=== PATIENT | female | born 1945 | race Caucasian/White ===

== ENCOUNTER 2018-11-22 21:36 | Emergency (ER) | payer SELFPAY ==
[2018-11-22] MEDS ORDERED: IPRATRPIUM/ALBUTEROL 0.5/2.5MG 3 ML NEBU. ONE (22:02)
[2018-11-22] MEDS ORDERED: IPRATRPIUM/ALBUTEROL 0.5/2.5MG 3 ML NEBU. NEB ONE (22:15)
[2018-11-22] MEDS ORDERED: IV NORMAL SALINE 1,000ML 1,000 ML IV SCH (22:16)
--- NOTE | 2018-11-22 22:17 | PHYS DOC ---
Past History Additional Past Medical Histor: denies any significant past medical history Smoking: Cigarettes Drug Use: None Adult General Chief Complaint Chief Complaint: SHORTNESS OF BREATH HPI HPI Patient is a 73 year old female who presents with complaint of shortness of breath. The patient states that she started having shortness of breath yesterd ay evening that seemed to improve earlier today. States that it again worsened earlier tonight, thus prompting patient come to the emergency department for further evaluation. Patient states that she has had tightness in her chest and difficulty breathing. Has not taken any medications for her symptoms at home. Denies any known fever. Does have history of smoking but states that she has stopped smoking over the past few weeks. Has not had any associated vomiting or loose stools. Does not currently follow with a primary physician. Review of Systems Review of Systems Constitutional: Denies fever or chills [] Eyes: Denies change in visual acuity, redness, or eye pain [] HENT: Denies nasal congestion or sore throat [] Respiratory: Denies cough or shortness of breath [] Cardiovascular: No additional information not addressed in HPI [] GI: Denies abdominal pain, nausea, vomiting, bloody stools or diarrhea [] : Denies dysuria or hematuria [] Musculoskeletal: Denies back pain or joint pain [] Integument: Denies rash or skin lesions [] Neurologic: Denies headache, focal weakness or sensory changes [] Endocrine: Denies polyuria or polydipsia [] All other systems were reviewed and found to be within normal limits, except as documented in this note. Current Medications Current Medications Current Medications Medications (Trade) Dose Ordered Sig/[facility] Start Time Stop Time Status Last Admin Dose Admin Albuterol/ Ipratropium (Duoneb) 3 ml 1X ONCE 11/22/18 22:15 11/22/18 22:16 DC 11/22/18 22:09 3 ML Allergies Allergies Allergies Coded Allergies Type Severity Reaction Last Updated Verified Penicillins Allergy Unknown 11/22/18 Yes Physical Exam Physical Exam Constitutional: Alert, afebrile, appears in moderate respiratory distress. [] HENT: Normocephalic, atraumatic, bilateral external ears normal, oropharynx moist, no oral exudates, nose normal. [] Eyes: PERRLA, EOMI, conjunctiva normal, no discharge. [] Neck: Normal range of motion, no tenderness, supple, no stridor. [] Cardiovascular: Tachycardiac, regular rhythm, no murmur [] Lungs & Thorax: Prolonged history phase, expiratory wheezes bilaterally, no rales[] Abdomen: Bowel sounds normal, soft, no tenderness, no masses, no pulsatile masses. [] Skin: Warm, dry, no erythema, no rash. [] Back: No tenderness, no CVA tenderness. [] Extremities: No tenderness, no cyanosis, no clubbing, ROM intact, no edema. [] Neurologic: Alert and oriented X 3, normal motor function, normal sensory function, no focal deficits noted. [] Current Patient Data Vital Signs Temperature 97.6�F, blood pressure 179/95, heart rate 117 bpm, respiratory rate 18, oxygen saturation 90% on room air Lab Results Laboratory Tests Test 11/22/18 22:20 White Blood Count 10.9 x10^3/uL Red Blood Count 5.02 x10^6/uL Hemoglobin 15.1 g/dL Hematocrit 44.9 % Mean Corpuscular Volume 89 fL Mean Corpuscular Hemoglobin 30 pg Mean Corpuscular Hemoglobin Concent 34 g/dL Red Cell Distribution Width 15.1 % Platelet Count 269 x10^3/uL Neutrophils (%) (Auto) 79 % Lymphocytes (%) (Auto) 11 % Monocytes (%) (Auto) 8 % Eosinophils (%) (Auto) 1 % Basophils (%) (Auto) 1 % Neutrophils # (Auto) 8.6 x10^3uL Lymphocytes # (Auto) 1.2 x10^3/uL Monocytes # (Auto) 0.8 x10^3/uL Eosinophils # (Auto) 0.1 x10^3/uL Basophils # (Auto) 0.1 x10^3/uL Sodium Level 140 mmol/L Potassium Level 3.3 mmol/L Chloride Level 98 mmol/L Carbon Dioxide Level 29 mmol/L Anion Gap 13 Blood Urea Nitrogen 14 mg/dL Creatinine 1.1 mg/dL Estimated GFR (Cockcroft-Gault) 48.7 BUN/Creatinine Ratio 13 Glucose Level 106 mg/dL Calcium Level 9.3 mg/dL Total Bilirubin 0.8 mg/dL Aspartate Amino Transf (AST/SGOT) 21 U/L Alanine Aminotransferase (ALT/SGPT) 15 U/L Alkaline Phosphatase 138 U/L Troponin I Quantitative < 0.017 ng/mL [id number]-Ltf-A-Type Natriuretic Peptide 281 pg/mL Total Protein 8.1 g/dL Albumin 4.2 g/dL Albumin/Globulin Ratio 1.1 Current Medications Medications (Trade) Dose Ordered Sig/Kisha Route PRN Reason Start Time Stop Time Status Last Admin Dose Admin Albuterol/ Ipratropium (Duoneb) 3 ml STK-MED ONCE .ROUTE 11/22/18 22:02 11/22/18 22:02 DC Albuterol/ Ipratropium (Duoneb) 3 ml 1X ONCE NEB 11/22/18 22:15 11/22/18 22:16 DC 11/22/18 22:09 Sodium Chloride 1,000 ml @ 125 mls/hr Q8H IV 11/22/18 22:16 11/23/18 06:15 11/22/18 22:48 Methylprednisolone Sodium Succinate (SOLU-Medrol 125MG VIAL) 125 mg 1X ONCE IV 11/22/18 22:30 11/22/18 22:31 DC 11/22/18 22:48 EKG EKG Interpreted by me: Heart rate 111, sinus tachycardia, normal axis, normal intervals, no acute ST/T-wave abnormalities present[] Radiology/Procedures Radiology/[place] [address] IMAGING REPORT Signed PATIENT: MASHA GARCIAS LACCOUNT: [id number] : 1945 LOCATION: ER AGE: 73 SEX: F EXAM STATUS: REG ER ORD. PHYSICIAN: JACKLYN GARCIA MD REASON: Short of air, extremity swelling, possible right lung mass PROCEDURE: CT CHEST WO CONTRAST Exam: CT of chest without contrast INDICATION: Shortness of breath TECHNIQUE: Sequential axial images through the chest obtained without IV contrast. Sagittal and coronal reformatted images were reconstructed from the axial data and reviewed. Comparisons: None FINDINGS: Visualized portions of the thyroid are unremarkable. Several enlarged pretracheal lymph nodes are noted and enlarged right hilar lymphadenopathy is seen. Heart size is normal. There is a small pericardial effusion. Moderate trivessel coronary artery calcifications are noted. Thoracic aorta has a normal course and caliber. Pulmonary artery is not enlarged. Airways are patent. No consolidation or pneumothorax. 3.5 x 3.1 cm mass within the right middle lobe. Adjacent satellite nodule measuring 8 mm series 2 image 49. Mild centrilobular emphysematous changes noted in the upper lungs. No pleural effusion or thickening. Visualized upper abdomen is unremarkable. Adrenals are normal. No suspicious osseous lesion or acute fracture. IMPRESSION: 1. Right middle lobe mass measuring 3.5 x 3.1 cm and represent primary lung malignancy. There is an adjacent satellite nodule in the right middle lobe measuring 8 mm. 2. Enlarged right hilar and pretracheal lymphadenopathy, likely metastatic Exposure: One or more of the following in the visualized dose reduction techniques were utilized for this examination: 1. Automated exposure control 2. Adjustment of the MA and/or KV according to patient size 3. Use of iterative of reconstructive technique Electronically signed by: Real Nava MD (11/22/2018 11:21 PM) [facility] DICTATED AND SIGNED BY: REAL NAVA MD DATE: 11/22/182320 CC: JACKLYN GARCIA MD; PCP,NO ~ [place] [address] IMAGING REPORT Signed PATIENT: MASHA GARCIAS LACCOUNT: [id number] : 1945 LOCATION: ER AGE: 73 SEX: F EXAM STATUS: REG ER ORD. PHYSICIAN: JACKLYN GARCIA MD REASON: Shortness of breath PROCEDURE: PORTABLE CHEST 1V EXAM: CHEST ONE VIEW. HISTORY: Shortness of breath. COMPARISON: None. FINDINGS: A frontal view of the chest is obtained. There is a masslike opacity in the right mid lung versus a focal infiltrate. It measures 4.3 x 2.8 cm. There is mild atelectasis in the right base. There is no pneumothorax or pleural effusion. The heart is moderately enlarged. Hyperinflation suggests chronic obstructive pulmonary disease. There are atherosclerotic calcifications of the aorta. IMPRESSION: 1. 4.3 cm mass versus focal infiltrate in the right midlung. CT could further evaluate if the diagnosis remains unclear. 2. Chronic obstructive pulmonary disease. 3. Moderate cardiomegaly. Electronically signed by: Khai Rodrigues MD (11/22/2018 11:21 PM) [facility] DICTATED AND SIGNED BY: SOWMYA RODRIGUES MD DATE: 11/22/18 6978 CC: JACKLYN GARCIA MD; PCP,LINDSEY ~ [] Course & Med Decision Making Course & Med Decision Making Pertinent Labs and Imaging studies reviewed. (See chart for details) Patient was given one unit dose of DuoNeb in addition to IV Solu-Medrol in the emergency department. The patient states that after breathing treatment she feels much better and is not feeling short of breath. Patient's workup was concerning for a right lung mass noted on the chest x-ray. I ordered a CT scan which confirms a right middle lobe lung mass with right hilar and pretracheal lymphadenopathy raising primary concern for metastatic lung cancer. The patient currently does not have a primary care provider and is not following with anybody regarding routine care. I sat and spoke with the patient in detail regarding her diagnosis and need for additional workup. Given that the patient continues to display tachycardia with presence of abnormal findings, I offered transfer of the patient to a facility with pulmonology and oncology capabilities. The patient has declined admission and does not want to pursue transfer at this time. She is aware of the seriousness of her diagnosis and the need for further workup and states that she would like to do this as an outpatient. I will respect the patient's wishes. We'll prescribe prednisone, azithromycin, and albuterol for acute treatment of symptoms. Recommended follow-up with Dr. Nolasco of pulmonology for follow-up in the next 7 days for ER follow-up. Advised return to the emergency department for any worsening symptoms. Patient was understanding and in agreement with treatment plan. Dragon Disclaimer Dragon Disclaimer This electronic medical record was generated, in whole or in part, using a voice recognition dictation system. Departure Departure: Impression: Primary Impression: Mass of lung Additional Impression: Reactive airway disease Disposition: HOME, SELF-CARE Condition: STABLE Referrals: PCP,LINDSEY (PCP) JONO NOLASCO MD Patient Instructions: Asthma, Adult, Lung Cancer Additional Instructions: Your examination today reveals a lung mass that is very concerning for lung cancer. It is highly recommended that she follow-up within the next 7 days with a general pediatrician for reevaluation as this will need further testing to confirm diagnosis. Return to the emergency department for any worsening symptoms. Scripts Albuterol Sulfate (PROAIR HFA INHALER) 8.5 Gm Hfa.aer.ad 1 PUFF INH Q4-6HRS PRN for SHORTNESS OF BREATH, #1 INHALER 0 Refills Prov: JACKLYN GARCIA MD 11/22/18 Azithromycin (AZITHROMYCIN TABLET) 250 Mg Tablet 1 PKG PO UD, #6 TAB Prov: JACKLYN GARCIA MD 11/22/18 Prednisone (PREDNISONE) 10 Mg Tablet 10 MG PO UD for PREDNISONE TAPER, #39 TAB 0 Refills Take 3 tablets by mouth twice a day for 3 days, then take 2 tablets by mouth twice a day for 3 days, then take 1 tablet by mouth twice a day for 3 days, then take 1 tablet by mouth daily x 3 days, then stop. Prov: JACKLYN GARCIA MD 11/22/18 Problem Qualifiers Additional Impression: Reactive airway disease Asthma severity: unspecified severity Asthma persistence: unspecified Asthma complication type: with acute exacerbation Qualified Codes: J45.901 - Unspecified asthma with (acute) exacerbation JACKLYN GARCIA MD Nov 22, 2018 22:17
[2018-11-22] MEDS ORDERED: methylPREDNISolone SOD SUCC PF 125 MG/2 ML VIAL. IV ONE (22:30)
[2018-11-22 22:35] LABS: BASO # 0.1 x10^3/uL (0.0-0.2); BASO % 1 % (0-3); EOS # 0.1 x10^3/uL (0.0-0.7); EOS % 1 % (0-3); HEMATOCRIT 44.9 % (36.0-47.0); HEMOGLOBIN 15.1 g/dL (12.0-15.5); LYMPH # 1.2 x10^3/uL (1.0-4.8); LYMPH % 11 % (24-48); MEAN CORPUSCULAR HEMOGLOBIN 30 pg (25-35); MEAN CORPUSCULAR HGB CONC 34 g/dL (31-37); MEAN CORPUSCULAR VOLUME 89 fL (79-100); MONO # 0.8 x10^3/uL (0.0-1.1); MONO % 8 % (0-9); NEUT # 8.6 x10^3uL (1.8-7.7); NEUT % 79 % (31-73); PLATELET COUNT 269 x10^3/uL (140-400); RED BLOOD COUNT 5.02 x10^6/uL (3.50-5.40); RED CELL DISTRIBUTION WIDTH 15.1 % (11.5-14.5); WHITE BLOOD COUNT 10.9 x10^3/uL (4.0-11.0)
[2018-11-22 22:53] LABS: ALBUMIN 4.2 g/dL (3.4-5.0); ALBUMIN/GLOBULIN RATIO 1.1 (1.0-1.7); CALCIUM 9.3 mg/dL (8.5-10.1); CREATININE 1.1 mg/dL (0.6-1.0); GFR 48.7; POTASSIUM 3.3 mmol/L (3.5-5.1); TOTAL BILIRUBIN 0.8 mg/dL (0.2-1.0); TOTAL PROTEIN 8.1 g/dL (6.4-8.2)
--- NOTE | 2018-11-22 23:24 | RAD ---
EXAM: CHEST ONE VIEW. HISTORY: Shortness of breath. COMPARISON: None. FINDINGS: A frontal view of the chest is obtained. There is a masslike opacity in the right mid lung versus a focal infiltrate. It measures 4.3 x 2.8 cm. There is mild atelectasis in the right base. There is no pneumothorax or pleural effusion. The heart is moderately enlarged. Hyperinflation suggests chronic obstructive pulmonary disease. There are atherosclerotic calcifications of the aorta. IMPRESSION: 1. 4.3 cm mass versus focal infiltrate in the right midlung. CT could further evaluate if the diagnosis remains unclear. 2. Chronic obstructive pulmonary disease. 3. Moderate cardiomegaly. Electronically signed by: Khai Rodrigues MD (11/22/2018 11:21 PM) [facility]
--- NOTE | 2018-11-22 23:24 | RAD ---
Exam: CT of chest without contrast INDICATION: Shortness of breath TECHNIQUE: Sequential axial images through the chest obtained without IV contrast. Sagittal and coronal reformatted images were reconstructed from the axial data and reviewed. Comparisons: None FINDINGS: Visualized portions of the thyroid are unremarkable. Several enlarged pretracheal lymph nodes are noted and enlarged right hilar lymphadenopathy is seen. Heart size is normal. There is a small pericardial effusion. Moderate trivessel coronary artery calcifications are noted. Thoracic aorta has a normal course and caliber. Pulmonary artery is not enlarged. Airways are patent. No consolidation or pneumothorax. 3.5 x 3.1 cm mass within the right middle lobe. Adjacent satellite nodule measuring 8 mm series 2 image 49. Mild centrilobular emphysematous changes noted in the upper lungs. No pleural effusion or thickening. Visualized upper abdomen is unremarkable. Adrenals are normal. No suspicious osseous lesion or acute fracture. IMPRESSION: 1. Right middle lobe mass measuring 3.5 x 3.1 cm and represent primary lung malignancy. There is an adjacent satellite nodule in the right middle lobe measuring 8 mm. 2. Enlarged right hilar and pretracheal lymphadenopathy, likely metastatic Exposure: One or more of the following in the visualized dose reduction techniques were utilized for this examination: 1. Automated exposure control 2. Adjustment of the MA and/or KV according to patient size 3. Use of iterative of reconstructive technique Electronically signed by: Real Hill MD (11/22/2018 11:21 PM) [facility]
[2018-11-22] MEDS ORDERED: ALBU2.5V8 INH (23:58)
[2018-11-22] MEDS ORDERED: AZIT250T6 PO (23:58)
[2018-11-22] MEDS ORDERED: PRED-220 PO (23:58)
[2018-11-23 00:03] VITALS: BP 174/83
--- NOTE | 2018-11-24 15:52 | EKG ---
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
== END 2018-11-23 00:05 | disposition home or self-care (01) ==
LOC: ER 21:36
DX: J45.901 Unspecified asthma with (acute) exacerbation (principal); R91.8 Other nonspecific abnormal finding of lung field; F17.210 Nicotine dependence, cigarettes, uncomplicated; Z88.0 Allergy status to penicillin
CPT/HCPCS: 36415; 71045; 71250; 80053; 83880; 84484; 85025; 93005; 94640; 96374; 99285; J2930; J7620; J7030

== ENCOUNTER 2020-02-02 17:56 | Emergency (ER) | payer MEDICARE, OTHER ==
[~2020-02-02] VITALS: Ht 157.5 cm; Wt 86.1 kg
[~2020-02-02 17:56] MED LIST: ALBU2.5V8 INH; AZIT250T6 PO; PRED-220 PO
--- NOTE | 2020-02-02 18:19 | PHYS DOC ---
Past History Past Medical History: Anxiety, Arthritis, Cancer, Hypertension Additional Past Medical Histor: LUNG CA, HEART MURMUR Past Surgical History: Cholecystectomy, , Hysterectomy, Oophorectomy, Tonsillectomy Additional Past Surgical Histo: ADNOIDECTOMY; LEFT CARPAL TUNNEL RELEASE; HEMORRHOIDS Smoking: Cigarettes Alcohol Use: None Drug Use: None General Adult EDM: Chief Complaint: SHORTNESS OF BREATH HPI: HPI: ".. I ve been really short of breath the last two days... You see I got lung cancer... small cell.. they found it back in Nov. .. I ve been on Chemo... every three weeks at [facility]... and they are doing MRI of my head and CT of my chest... I see a oncology down there at [facility].... Right now I cannot think of his name... Now I am so short of breath I cannot make it down the hallway... I have not needed oxygen to this point... But I really short of breath...".. " I know I am just buying time... ".."I know what going... 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 Patient is a 74 year old female who presents with above hx and complaints of dyspnea and fatigue. Patient has history of small cell lung cancer and has been on chemotherapy every 3 weeks. Is followed with oncology at [facility]. Has getting IV chemotherapy every 3 weeks. Pt . is due for another round of chemo this week. Patient has been seen by cardiology Dr. Barkley back in November.. Patient denies any specific ill contacts. Is immunosuppressed because of her chemotherapy. Patient denies any fever chills. No recent travel outside the [place] area. 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 Patien has past medical history small cell lung cancer, hypertension, gait disorder, bronchitis, COPD, heart murmur, deconditioning. Pt. primary is Dr. Sadie Arce. Review of Systems: Review of Systems: Constitutional: Denies fever or chills Eyes: Denies change in visual acuity HENT: Denies nasal congestion or sore throat Respiratory: Complaints of increase dyspnea with activity. Cardiovascular: Denies chest pain or edema GI: Denies abdominal pain, nausea, vomiting, bloody stools or diarrhea : Denies dysuria Musculoskeletal: Denies back pain or joint pain Integument: Denies rash Neurologic: Denies headache, focal weakness or sensory changes Endocrine: Denies polyuria or polydipsia Lymphatic: Denies swollen glands Psychiatric: Denies depression or anxiety Family History: Family History: Noncontributory to presentation Current Medications: Current Meds: See nursing for home meds Allergies: Allergies: Allergies Coded Allergies Type Severity Reaction Last Updated Verified Penicillins Allergy Unknown 11/22/18 Yes Physical Exam: PE: Constitutional: Moderate acute distress, non-toxic appearance. [] HENT: Normocephalic, atraumatic, bilateral external ears normal, oropharynx mo ist, no oral exudates, nose normal. [] Eyes: PERRLA, EOMI, conjunctiva normal, no discharge. [] Neck: Normal range of motion, no tenderness, supple, no stridor. [] Cardiovascular: Tachycardia heart rate regular rhythm, systolic murmur [] Lungs & Thorax: Bilateral breath sounds equal apex with scattered wheezes auscultation [Pt. ] has intravascular port on left chest wall. Some basilar crackles Abdomen: Bowel sounds normal, soft, no tenderness, no masses, no pulsatile masses. Old surgery scars Skin: Warm, dry, no erythema, no rash. Poor turgor Back: No tenderness, no CVA tenderness. [] Extremities: No tenderness, no cyanosis, no clubbing, ROM intact, no edema. Old surgery scars. Arthritis. No cording appreciated Neurologic: Alert and oriented X 3, moves all extremities on request, has distal sensory,, no focal deficits noted. Uses a walker to ambulate. Psychologic: Affect anxious, judgement normal, mood normal. [] Current Patient Data: Vital Signs: Vital Signs Date Time Temp Pulse Resp B/P (MAP) Pulse Ox O2 Delivery O2 Flow Rate FiO2 02/02/20 18:07 98.7 103 24 216/82 (126) 99 Nasal Cannula 2.0 EKG: EKG: My interpretation of EKG shows a sinus rhythm at 97 bpm. No findings of acute STEMI of contralateral changes. [] Radiology/Procedures: Radiology/Procedures: [][address] [address] IMAGING REPORT Signed PATIENT: MASHA GARCIAS LACCOUNT: [id number] : 1945 LOCATION: ER AGE: 74 SEX: F EXAM STATUS: REG ER ORD. PHYSICIAN: HEATH HOPKINS MD REASON: dyspnea, SS lung CA, on chemo, OMNI 350, 100ml PROCEDURE: CT ANGIOGRAPHY CHEST CT angiography chest with contrast PQRS statement: CT scans at this facility use dose reduction including either automated exposure control, iterative reconstructions, and /or weight based radiation dosing via mA and kV modification when appropriate to reduce radiation dose to as low as reasonably achievable. Contrast: 100 mL Omnipaque 350 intravenous contrast. 3-D MIP reconstructions of the pulmonary arteries were acquired. HISTORY: Dyspnea, history of lung cancer, cough. COMPARISON: CT chest November 22, 2018. FINDINGS: Extensive calcified plaque thoracic aorta and coronary arteries. Left jugular portacatheter tip right atrium. There is a mild pericardial effusion with a maximum thickness of 2 cm posterior the left ventricle which has increased in size previously was subcentimeter in thickness. Heart size stable. No pulmonary artery emboli. Esophagus is unremarkable. Mediastinal and hilar lymph nodes have markedly decreased in size, currently the largest lymph nodes measuring up to 1.5 cm previously measured up to 3 cm. There are diffuse small 1 to 2 mm in size centrilobular nodules bilaterally suggesting an infectious/inflammatory process. There are some slightly larger solid nodules which are new measuring up to 6 mm at the lingula at the lingula image 69.. The right middle lobe mass on the prior exam has significantly decreased there is a mild irregular residual 1.8 cm nodule remaining previously measured 3.5 cm. Mild discoid atelectasis at the lung bases. No pleural effusions. Bones unremarkable. IMPRESSION: 1. No pulmonary artery emboli. 2. Development of diffuse centrilobular type nodules measuring 1 to 2 mm in size suggesting endobronchial infectious or inflammatory process. There are a few scattered new solid nodules measuring up to 6 mm which are indeterminate. Consider follow-up CT imaging in 6 months. 3. Positive treatment response with reduction in size of the right middle lobe mass and reduction in size of the thoracic adenopathy as described above. 4. Moderate pericardial effusion has increased in size as described above. This could be reactive fluid or sequela of pericarditis. There is no discrete pericardial mass lesion evident although pericardial fluid from metastatic disease is also a possibility. Electronically signed by: Columba Neumann MD (02/02/2020 10:18 PM) [facility] DICTATED AND SIGNED BY: COLUMBA NEUMANN MD DATE: 02/02/202217 CC: HEATH HOPKINS MD; LUIS ARCE MD ~ [place] [address] IMAGING REPORT Signed PATIENT: MASHA GARCIAS LACCOUNT: [id number] : 1945 LOCATION: ER AGE: 74 SEX: F EXAM STATUS: REG ER ORD. PHYSICIAN: HEATH HOPKINS MD REASON: ?? PROCEDURE: PORTABLE CHEST 1V AP chest x-ray HISTORY: Dyspnea, lung cancer. COMPARISON: Chest x-ray November 22, 2018. FINDINGS: Mild cardiomegaly stable. Left jugular portacatheter tip right atrium. Aortic arch calcified plaque. The mass lesion at the right lung base on the prior x-rays is no longer apparent. Pulmonary vascular prominence likely congestion. Probable pulmonary interstitial edema at the lung bases. No pleural effusions. IMPRESSION: Mild probable changes of congestive heart failure with cardiomegaly, pulmonary vascular congestion and mild basilar pulmonary interstitial edema. No pleural effusions. See above. Electronically signed by: Columba Neumann MD (02/02/2020 8:22 PM) [facility] DICTATED AND SIGNED BY: COLUMBA NEUMANN MD DATE: 02/02/202021 CC: HEATH HOPKINS MD; LUIS ARCE MD ~ Heart Score: HEART Score for Chest Pain: HEART Score for Chest Pain Response (Comments) Value History Slighlty/Non-Suspicious 0 ECG Normal 0 Age > 65 2 Risk Factors 1 or 2 Risk Factors 1 Troponin < Normal Limit 0 Total 3 Risk Factors: Risk Factors: DM, Current or recent (<one month) smoker, HTN, HLP, family history of CAD, obesity. Risk Scores: Score 0 - 3: 2.5% MACE over next 6 weeks - Discharge Home Score 4 - 6: 20.3% MACE over next 6 weeks - Admit for Clinical Observation Score 7 - 10: 72.7% MACE over next 6 weeks - Early Invasive Strategies Course & Med Decision Making: Course & Med Decision Making Pertinent Labs and Imaging studies reviewed. (See chart for details) Discussed at length patient's findings, labs, x-rays, and risk factors. Patient reporting resolution of her symptoms at time of discharge. Exhibits UC[facility] capacity and elects to be discharged home. We will continue with Zithromax 250 mg a day. Patient use MDI 2 puffs 4 times a day. Recommend patient take Eliquis 2.5 mg twice a day. Reviewed this with her primary care and oncology. Call in a.m. her primary care and her oncologist. Return if any concerns. "I feel so much better.. I would like to discharged home. .. I know there are risks.. but I want to go home.. " Impression: 1. Dyspnea 2. Small cell lung cancer right-on chemotherapy every 3 weeks 3. Elevated CRP 11.3 4. Mild elevation of D-dimer 0.97 [] Pattie Disclaimer: Pattie Disclaimer: This electronic medical record was generated, in whole or in part, using a voice recognition dictation system. Departure Departure: Disposition: 01 DC HOME SELF CARE/HOMELESS Condition: STABLE Referrals: PCP,NO (PCP) Scripts Azithromycin (ZITHROMAX) 250 Mg Tablet 250 MG PO DAILY for ANTI-BIOTIC, #5 TAB 0 Refills Prov: HEATH HOPKINS MD 02/03/20 Albuterol Sulfate (VENTOLIN HFA INHALER) 18 Gm Hfa.aer.ad 2 PUFF IH QID PRN for FOR ASTHMA, #1 INHALER 0 Refills Prov: HEATH HOPKINS MD 02/03/20 Pattie Disclaimer This chart was dictated in whole or in part using Voice Recognition software in a busy, high-work load, and often noisy Emergency Department environment. It may contain unintended and wholly unrecognized errors or omissions. Dragon Disclaimer This chart was dictated in whole or in part using Voice Recognition software in a busy, high-work load, and often noisy Emergency Department environment. It may contain unintended and wholly unrecognized errors or omissions. HEATH HOPKINS MD Feb 02, 2020 18:19
[2020-02-02] MEDS ORDERED: CONTRAST GIVEN. MC PRN (18:45)
[2020-02-02 18:55] LABS: BASO % 1 % (0-3); EOS # 0.6 x10^3/uL (0.0-0.7); EOS % 7 % (0-3); HEMATOCRIT 38.7 % (36.0-47.0); HEMOGLOBIN 12.6 g/dL (12.0-15.5); LYMPH # 1.4 x10^3/uL (1.0-4.8); LYMPH % 17 % (24-48); MEAN CORPUSCULAR HEMOGLOBIN 30 pg (25-35); MEAN CORPUSCULAR HGB CONC 33 g/dL (31-37); MEAN CORPUSCULAR VOLUME 91 fL (79-100); MONO # 0.8 x10^3/uL (0.0-1.1); MONO % 10 % (0-9); NEUT # 5.1 x10^3uL (1.8-7.7); NEUT % 65 % (31-73); PLATELET COUNT 197 x10^3/uL (140-400); RED BLOOD COUNT 4.24 x10^6/uL (3.50-5.40); RED CELL DISTRIBUTION WIDTH 14.5 % (11.5-14.5); WHITE BLOOD COUNT 7.9 x10^3/uL (4.0-11.0)
[2020-02-02] MEDS ORDERED: AZITHROMYCIN 250 MG TABLET. PO ONE (19:00)
[2020-02-02] MEDS ORDERED: IV RINGERS SOLUTION,LACTATED 1,000 ML IV SCH (19:00)
[2020-02-02] MEDS ORDERED: ASPIRIN CHEWABLE 81 MG TABLET. PO ONE (19:00)
[2020-02-02] MEDS ORDERED: methylPREDNISolone SOD SUCC PF 125 MG/2 ML VIAL. IV ONE (19:00)
[2020-02-02] MEDS ORDERED: IOHEXOL 350 MG/ML 100 ML VIAL. IV ONE (19:00)
[2020-02-02] MEDS ORDERED: ALBUTEROL SULFATE 8GM INHALER. IH ONE (19:00)
[2020-02-02 19:06] LABS: CREATININE 0.8 mg/dL (0.6-1.0); GFR 70.1; POTASSIUM 3.5 mmol/L (3.5-5.1)
[2020-02-02 19:09] LABS: BACTERIA,URINE 0 /HPF (0-FEW); BILIRUBIN,URINE NEG (NEG); CLARITY,URINE CLEAR; COLOR,URINE COLORLESS; GLUCOSE,URINE NEG (NEG); NITRITE,URINE NEG (NEG); RBC,URINE RARE /HPF (0-2); UROBILINOGEN,URINE 0.2 mg/dL (0.2 mg/dL); WBC,URINE 0 /HPF (0-4)
[2020-02-02 19:19] LABS: ALBUMIN 3.8 g/dL (3.4-5.0); C REACTIVE PROTEIN 11.3 mg/L (0-3.3); DIRECT BILIRUBIN 0.1 mg/dL (0.0-0.2); MAGNESIUM 1.9 mg/dL (1.8-2.4); TOTAL BILIRUBIN 0.3 mg/dL (0.2-1.0)
[2020-02-02] MEDS ORDERED: diphenhydrAMINE 50 MG/ML VIAL IVP ONE (20:00)
[2020-02-02] MEDS ORDERED: FAMOTIDINE 20 MG/2 ML VIAL IVP ONE (20:00)
--- NOTE | 2020-02-02 20:25 | RAD ---
AP chest x-ray HISTORY: Dyspnea, lung cancer. COMPARISON: Chest x-ray November 22, 2018. FINDINGS: Mild cardiomegaly stable. Left jugular portacatheter tip right atrium. Aortic arch calcified plaque. The mass lesion at the right lung base on the prior x-rays is no longer apparent. Pulmonary vascular prominence likely congestion. Probable pulmonary interstitial edema at the lung bases. No pleural effusions. IMPRESSION: Mild probable changes of congestive heart failure with cardiomegaly, pulmonary vascular congestion and mild basilar pulmonary interstitial edema. No pleural effusions. See above. Electronically signed by: Jeevan Neumann MD (02/02/2020 8:22 PM) [facility]
[2020-02-02 21:05] VITALS: BP 207/102
--- NOTE | 2020-02-02 22:21 | RAD ---
CT angiography chest with contrast PQRS statement: CT scans at this facility use dose reduction including either automated exposure control, iterative reconstructions, and /or weight based radiation dosing via mA and kV modification when appropriate to reduce radiation dose to as low as reasonably achievable. Contrast: 100 mL Omnipaque 350 intravenous contrast. 3-D MIP reconstructions of the pulmonary arteries were acquired. HISTORY: Dyspnea, history of lung cancer, cough. COMPARISON: CT chest November 22, 2018. FINDINGS: Extensive calcified plaque thoracic aorta and coronary arteries. Left jugular portacatheter tip right atrium. There is a mild pericardial effusion with a maximum thickness of 2 cm posterior the left ventricle which has increased in size previously was subcentimeter in thickness. Heart size stable. No pulmonary artery emboli. Esophagus is unremarkable. Mediastinal and hilar lymph nodes have markedly decreased in size, currently the largest lymph nodes measuring up to 1.5 cm previously measured up to 3 cm. There are diffuse small 1 to 2 mm in size centrilobular nodules bilaterally suggesting an infectious/inflammatory process. There are some slightly larger solid nodules which are new measuring up to 6 mm at the lingula at the lingula image 69.. The right middle lobe mass on the prior exam has significantly decreased there is a mild irregular residual 1.8 cm nodule remaining previously measured 3.5 cm. Mild discoid atelectasis at the lung bases. No pleural effusions. Bones unremarkable. IMPRESSION: 1. No pulmonary artery emboli. 2. Development of diffuse centrilobular type nodules measuring 1 to 2 mm in size suggesting endobronchial infectious or inflammatory process. There are a few scattered new solid nodules measuring up to 6 mm which are indeterminate. Consider follow-up CT imaging in 6 months. 3. Positive treatment response with reduction in size of the right middle lobe mass and reduction in size of the thoracic adenopathy as described above. 4. Moderate pericardial effusion has increased in size as described above. This could be reactive fluid or sequela of pericarditis. There is no discrete pericardial mass lesion evident although pericardial fluid from metastatic disease is also a possibility. Electronically signed by: Jeevan Neumann MD (02/02/2020 10:18 PM) [facility]
[2020-02-03] MEDS ORDERED: AZIT250T PO (01:23)
[2020-02-03] MEDS ORDERED: ALBU2.5V8 IH (01:23)
--- NOTE | 2020-02-03 02:00 | EKG ---
[address] [address] Test Date: 2020-02-02 Test Time: 19:21:35 Pat Name: MASHA GARCIAS Department: Room: Gender: F Service Manager: JAYY : 1945 Requested By: HEATH HOPKINS Order Number: [id number] Reading MD: Ezra Bynum Measurements Intervals [place] Rate: 97 P: 46 SD: 134 QRS: 46 QRSD: 74 T: 68 QT: 354 QTc: 454 Interpretive Statements SINUS RHYTHM Electronically Signed On 02-05-2020 10:57:51 TUTOR COORDINATOR by Ezra Bynum
[2020-02-03] MEDS ORDERED: APIXABAN 2.5 MG TABLET PO SCH (09:00)
== END 2020-02-03 01:50 | disposition home or self-care (01) ==
LOC: ER 17:56
DX: R06.00 Dyspnea, unspecified (principal); R79.82 Elevated C-reactive protein (CRP); R79.89 Other specified abnormal findings of blood chemistry; R53.83 Other fatigue; F41.9 Anxiety disorder, unspecified; M19.90 Unspecified osteoarthritis, unspecified site; I10 Essential (primary) hypertension; F17.210 Nicotine dependence, cigarettes, uncomplicated; Z90.710 Acquired absence of both cervix and uterus; Z90.49 Acquired absence of other specified parts of digestive tract; Z90.89 Acquired absence of other organs; Z98.890 Other specified postprocedural states; Z88.0 Allergy status to penicillin
CPT/HCPCS: 36415; 71045; 71275; 80048; 80076; 81001; 82550; 83605; 83690; 83735; 83880; 84443; 84484; 85025; 85379; 85610; 85730; 86140; 87040; 87205; 93005; 96361; 96374; 96375; 99285; J0456; J1200; J2930; J3490; J7120; J7613; Q9967

== ENCOUNTER → 2020-09-08 | Outpatient (CLI) | payer MEDICARE, OTHER ==
[~2020-09-08] MED LIST changes: +ALBU2.5V8 IH; +AZIT250T PO
[2020-09-08 08:49] LABS: BASO % 1 % (0-3); EOS # 0.5 x10^3/uL (0.0-0.7); EOS % 7 % (0-3); HEMATOCRIT 33.3 % (36.0-47.0); HEMOGLOBIN 11.1 g/dL (12.0-15.5); LYMPH # 1.5 x10^3/uL (1.0-4.8); LYMPH % 22 % (24-48); MEAN CORPUSCULAR HEMOGLOBIN 30 pg (25-35); MEAN CORPUSCULAR HGB CONC 34 g/dL (31-37); MEAN CORPUSCULAR VOLUME 90 fL (79-100); MONO # 0.8 x10^3/uL (0.0-1.1); MONO % 12 % (0-9); NEUT % 58 % (31-73); PLATELET COUNT 205 x10^3/uL (140-400); RED CELL DISTRIBUTION WIDTH 14.8 % (11.5-14.5); WHITE BLOOD COUNT 6.8 x10^3/uL (4.0-11.0)
[2020-09-08 09:21] LABS: ALBUMIN 3.7 g/dL (3.4-5.0); ALBUMIN/GLOBULIN RATIO 0.8 (1.0-1.7); CALCIUM 8.7 mg/dL (8.5-10.1); CREATININE 1.1 mg/dL (0.6-1.0); GFR 48.4; TOTAL BILIRUBIN 0.3 mg/dL (0.2-1.0); TOTAL PROTEIN 8.1 g/dL (6.4-8.2)
== END ==
LOC: LAB 07:51
PROVIDERS: ATTEND Internal Medicine Hematology & Oncology
DX: E05.80 Other thyrotoxicosis without thyrotoxic crisis or storm (principal)
CPT/HCPCS: 36415; 80053; 83615; 85025

== ENCOUNTER → 2020-09-29 | Outpatient (CLI) | payer MEDICARE, OTHER ==
[2020-09-29 08:47] LABS: BASO % 1 % (0-3); EOS # 0.6 x10^3/uL (0.0-0.7); EOS % 7 % (0-3); HEMATOCRIT 33.5 % (36.0-47.0); HEMOGLOBIN 11.3 g/dL (12.0-15.5); LYMPH # 1.6 x10^3/uL (1.0-4.8); LYMPH % 18 % (24-48); MEAN CORPUSCULAR HEMOGLOBIN 30 pg (25-35); MEAN CORPUSCULAR HGB CONC 34 g/dL (31-37); MEAN CORPUSCULAR VOLUME 90 fL (79-100); MONO % 12 % (0-9); NEUT # 5.4 x10^3uL (1.8-7.7); NEUT % 63 % (31-73); PLATELET COUNT 196 x10^3/uL (140-400); RED BLOOD COUNT 3.73 x10^6/uL (3.50-5.40); RED CELL DISTRIBUTION WIDTH 14.5 % (11.5-14.5); WHITE BLOOD COUNT 8.6 x10^3/uL (4.0-11.0)
[2020-09-29 08:55] LABS: ALBUMIN 3.9 g/dL (3.4-5.0); ALBUMIN/GLOBULIN RATIO 0.9 (1.0-1.7); CALCIUM 8.8 mg/dL (8.5-10.1); CREATININE 1.1 mg/dL (0.6-1.0); GFR 48.4; POTASSIUM 4.2 mmol/L (3.5-5.1); TOTAL BILIRUBIN 0.3 mg/dL (0.2-1.0); TOTAL PROTEIN 8.2 g/dL (6.4-8.2)
== END ==
LOC: LAB 08:05
PROVIDERS: ATTEND Internal Medicine Hematology & Oncology
DX: C34.2 Malignant neoplasm of middle lobe, bronchus or lung (principal); D69.6 Thrombocytopenia, unspecified; E05.80 Other thyrotoxicosis without thyrotoxic crisis or storm
CPT/HCPCS: 36415; 80053; 83615; 85025

== ENCOUNTER → 2020-10-20 | Outpatient (CLI) | payer MEDICARE, OTHER ==
[2020-10-20 08:23] LABS: BASO % 1 % (0-3); EOS # 0.5 x10^3/uL (0.0-0.7); EOS % 6 % (0-3); HEMOGLOBIN 11.2 g/dL (12.0-15.5); LYMPH % 23 % (24-48); MEAN CORPUSCULAR HEMOGLOBIN 30 pg (25-35); MEAN CORPUSCULAR HGB CONC 33 g/dL (31-37); MEAN CORPUSCULAR VOLUME 91 fL (79-100); MONO # 1.3 x10^3/uL (0.0-1.1); MONO % 15 % (0-9); NEUT % 57 % (31-73); PLATELET COUNT 193 x10^3/uL (140-400); RED BLOOD COUNT 3.76 x10^6/uL (3.50-5.40); RED CELL DISTRIBUTION WIDTH 14.8 % (11.5-14.5); WHITE BLOOD COUNT 8.8 x10^3/uL (4.0-11.0)
[2020-10-20 08:39] LABS: ALBUMIN 3.6 g/dL (3.4-5.0); ALBUMIN/GLOBULIN RATIO 0.8 (1.0-1.7); GFR 54.1; MAGNESIUM 1.8 mg/dL (1.8-2.4); POTASSIUM 3.7 mmol/L (3.5-5.1); TOTAL BILIRUBIN 0.3 mg/dL (0.2-1.0)
== END ==
LOC: LAB 07:47
PROVIDERS: ATTEND Physician Assistant
DX: C34.2 Malignant neoplasm of middle lobe, bronchus or lung (principal)
CPT/HCPCS: 36415; 80053; 83615; 83735; 85025

== ENCOUNTER → 2020-12-01 | Emergency (ER) | payer MEDICARE, OTHER ==
[~2020-12-01] MED LIST changes: +EPINEPHrine SYRINGE 1 MG/10 ML SYRINGE ONE; +FUROSEMIDE 100 MG/10 ML VIAL ONE; +NITROGLYCERIN OINT 1 GM PACKET. TP ONE; +PANTOPRAZOLE IV 40 MG VIAL. IVP ONE; +PROPOFOL 100 ML IV ONE; +PROPOFOL 100 ML IV PRN; +SODIUM BICARB ADULT 8.4% 50 MEQ/50 ML DISP.SYRIN. IV ONE; +SODIUM BICARB ADULT 8.4% 50 MEQ/50 ML DISP.SYRIN. ONE; +methylPREDNISolone SOD SUCC PF 125 MG/2 ML VIAL. IV ONE; +methylPREDNISolone SOD SUCC PF 125 MG/2 ML VIAL. ONE
--- NOTE | 2020-12-01 07:30 | PHYS DOC ---
Past History Past Medical History: Anxiety, Arthritis, Cancer, Hypertension Additional Past Medical Histor: LUNG CA, HEART MURMUR Past Surgical History: Cholecystectomy, , Hysterectomy, Oophorectomy, Tonsillectomy Additional Past Surgical Histo: ADNOIDECTOMY; LEFT CARPAL TUNNEL RELEASE; HEMORRHOIDS Smoking: Cigarettes Alcohol Use: None Drug Use: None Adult General HPI HPI Patient is a 75-year-old female presenting for respiratory failure. Patient presented POV and had trouble getting out of vehicle. Presented with agonal breathing. She was blue/cyanotic and nonresponsive. Staff immediately responded to patient on arrival given appearance upon entry to our waiting room, pulse was lost in waiting room and patient was quickly placed on ER gurney and brought back for CODE BLUE. Presenting symptoms are unknown. Per chart review, it appears patient was diagnosed with small cell lung cancer November 2019. She has been going down to [facility] where she received chemo. At her last visit approximately 1 year ago she was not on oxygen. She has history of small cell lung cancer as mention, hypertension, gait disorder, bronchitis, COPD, heart murmur and deconditioning. Patient's primary is Dr. Arce Review of Systems Review of Systems Unable to assess due to CODE BLUE situation Current Medications Current Medications Current Medications Medications (Trade) Dose Ordered Sig/Kisha Start Time Stop Time Status Last Admin Dose Admin Furosemide (Lasix) 100 mg STK-MED ONCE 12/01/20 07:17 12/01/20 07:18 DC Methylprednisolone Sodium Succinate (SOLU-Medrol 125MG VIAL) 125 mg STK-MED ONCE 12/01/20 07:26 12/01/20 07:26 DC Allergies Allergies Allergies Coded Allergies Type Severity Reaction Last Updated Verified Penicillins Allergy Intermediate 02/02/20 Yes iodine Allergy Intermediate Itching 02/02/20 Yes Physical Exam Physical Exam Constitutional: Toxic appearing and cyanotic around the lips and face on arrival, agonal breathing HEENT: Head: Normocephalic and atraumatic. External ears unremarkable, no davis sign Conjunctivae and sclera normal. Pupils are equal, round, and minimally reactive to light Oropharynx is clear and moist. No teeth No hematomas or lacerations or abrasions to face or scalp OP clear, no blood, no malocclusion, dentition intact Nares clear, no nasal septal hematoma Midface stable Neck: C-spine midline nontender, no step-offs Cardiovascular: Tachycardic rate, regular rhythm and normal heart sounds. Pulmonary/Chest: Acute respiratory failure with agonal breathing, accessory muscle use of neck and abdomen with abdominal retractions noted, breath sounds present bilaterally but extensive rales and rhonchi globally Abdominal: Soft and protuberant. Bowel sounds are normal. Pt exhibits no distension. There is no tenderness. Musculoskeletal: No bony tenderness to extremities, no deformities, full ROM extremities Chest wall stable Pelvis stable and non-tender No vertebral TTP and spine without stepoffs Neurological: Unable to fully assess given respiratory arrest Not moving all extremities willingly, unable to follow commands due to respiratory arrest Downgoing toes bilaterally Skin: Skin is cool and dry. No abrasions, no lacerations. Skin changes of bilateral lower extremities consistent with hardening/thickened skin. Toenail onychomycosis Psychiatric: Unable to fully assess Current Patient Data Vital Signs Vital Signs Date Time Temp Pulse Resp B/P (MAP) Pulse Ox O2 Delivery O2 Flow Rate FiO2 12/01/20 08:20 122 196/106 Vital Signs Date Time Temp Pulse Resp B/P (MAP) Pulse Ox O2 Delivery O2 Flow Rate FiO2 12/01/20 08:20 122 196/106 Lab Results Current Medications Medications (Trade) Dose Ordered Sig/Kisha Route PRN Reason Start Time Stop Time Status Last Admin Dose Admin Furosemide (Lasix) 100 mg STK-MED ONCE .ROUTE 12/01/20 07:17 12/01/20 07:18 DC Methylprednisolone Sodium Succinate (SOLU-Medrol 125MG VIAL) 125 mg STK-MED ONCE .ROUTE 12/01/20 07:26 12/01/20 07:26 DC Methylprednisolone Sodium Succinate (SOLU-Medrol 125MG VIAL) 125 mg 1X ONCE IV 12/01/20 07:30 12/01/20 07:38 DC 12/01/20 07:27 Pantoprazole Sodium (Protonix Vial) 40 mg 1X ONCE IVP 12/01/20 07:30 12/01/20 07:38 DC 12/01/20 08:30 Fentanyl Citrate 30 ml @ 2.5 mls/hr CONT PRN IV PAIN 12/01/20 08:00 12/01/20 11:20 Propofol 100 ml @ 0 mls/hr CONT PRN IV PER PROTOCOL 12/01/20 08:00 12/01/20 08:33 Nitroglycerin (Nitro-Bid Oint) 1 inch 1X ONCE TP 12/01/20 08:15 12/01/20 08:16 DC 12/01/20 08:20 Propofol 100 ml @ As Directed STK-MED ONCE IV 12/01/20 08:08 12/01/20 08:08 DC Sodium Bicarbonate (Sodium Bicarb Adult 8.4% Syr) 50 meq 1X ONCE IV 12/01/20 09:00 12/01/20 09:03 DC 12/01/20 08:46 Levofloxacin/ Dextrose 150 ml @ 100 mls/hr 1X ONCE IV 12/01/20 09:45 12/01/20 11:14 DC Epinephrine HCl (EPINEPHrine SYRINGE) 3 mg STK-MED ONCE .ROUTE 12/01/20 08:00 12/01/20 22:40 DC Sodium Bicarbonate (Sodium Bicarb Adult 8.4% Syr) 100 meq STK-MED ONCE .ROUTE 12/01/20 08:00 12/01/20 22:40 DC EKG EKG EKG ordered and interpreted by myself at 0850 hrs. as sinus tachycardia at 108 bpm, prolonged QTC at 470 otherwise unremarkable intervals, no axis deviation, no acute ischemic findings, no STEMI Radiology/Procedures Radiology/Procedures EXAM: XR CHEST 1V 12/01/2020 7:25 AM CLINICAL INDICATION: CODE BLUE, status post intubation COMPARISON: CT chest 10/15/2020 TECHNIQUE: AP supine view of the chest FINDINGS: A left IJ Port-A-Cath is in place with tip at the superior cavoatrial junction. The cardiac silhouette is within normal limits. There are diffuse bilateral interstitial and alveolar opacities. Trace pleural fluid along the minor fissure. No pneumothorax. IMPRESSION: Bilateral pulmonary opacities could be due to pulmonary edema or multifocal pneumonia. Electronically signed by: Nancy Huston MD (12/01/2020 7:38 AM) [id number] //////////////////////////////////////////////////////////// AP chest. HISTORY: OG placement AP view was taken of the chest. NG tube extends into the stomach. Endotracheal tube is at the aortic arch in good position. There is bilateral lung disease from infiltrates or pulmonary edema with worsening especially on the right. Left Port-A-Cath is in good position. Heart is enlarged. IMPRESSION: 1. Mild worsening bilateral pulmonary edema or infiltrates, worse on the right. 2. Endotracheal tube in good position. 3. NG tube extends into the stomach. Electronically signed by: Jalen Rocha MD (12/01/2020 8:10 AM) [facility] ////////////////////// EXAM: Head CT without contrast. HISTORY: Respiratory arrest. TECHNIQUE: Computed tomographic images of the head were obtained without contrast. *One or more of the following individualized dose reduction techniques were utilized for this examination: 1. Automated exposure control. 2. Adjustment of the mA and/or kV according to patient size. 3. Use of iterative reconstruction technique. COMPARISON: MRI dated 10/15/2020. FINDINGS: There is no acute or subacute extra-axial or intraparenchymal hemorrhage. There is no mass effect or midline shift. There is no hydrocephalus. There are areas of decreased attenuation within the cerebral white matter, nonspecific and likely related to chronic small vessel disease. There is ethmoid sinus mucosal thickening. The orbits and mastoid air cells are unremarkable. There is no suspicious calvarial lesion. IMPRESSION: 1. No acute intracranial finding. Note is made that MRI is more sensitive for acute infarction. 2. Bilateral cerebral white matter changes, likely due to chronic small vessel disease in a patient of this age. Electronically signed by: Radha Chaudhary MD (12/01/2020 9:00 AM) [id number] ////////////////////////////////////// CT chest without contrast. HISTORY: Respiratory arrest CT scan the chest was done without contrast. There is an endotracheal tube stops just above the aortic arch. There is no mediastinal adenopathy. There are small pleural effusions. Visualized portions of the liver and spleen are unremarkable. Adrenal glands are normal. NG tube extends into the stomach. There is a small pericardial effusion. There are diffuse infiltrates bilaterally more prominent on the right than on the left. There is mild thickening of the interlobular septa. Pulmonary edema is possible, Covid pneumonia is possible, aspiration could potentially have this pattern. There is no pneumothorax. There is respiratory motion artifact. A rib fracture is possible, respiratory motion makes evaluation very difficult. IMPRESSION: 1. Bilateral infiltrates or pulmonary edema. 2. No pneumothorax. Heart Score C/O Chest Pain: N/A HEART Score for Chest Pain: HEART Score for Chest Pain Response (Comments) Value Age > 65 2 Risk Factors >3 Risk Factors or Hx CAD 2 Total 4 Risk Factors: Risk Factors: DM, Current or recent (<one month) smoker, HTN, HLP, family history of CAD, obesity. Risk Scores: Risk Factors: DM, Current or recent (<one month) smoker, HTN, HLP, family history of CAD, obesity. Course & Med Decision Making Course & Med Decision Making Patient walked through ER door and acute respiratory failure that decompensated to a respiratory arrest Patient transported back to trauma room. Peripheral IV access to right arm and right IO inserted. Oropharyngeal airway placed and patient was bagged via a BVM while compressions were started and pads etc. placed Patient intubated without complication. Patient coded for approximately 15 minutes following proper ACLS protocol (see nursing notes for complete detail of events) with eventual ROSC obtained. OG and Daniels catheters placed. IV Levaquin administered Patient's son and daughter were contacted. I disclosed critical status of patient and concern for pulmonary edema versus pneumonia as cause of patient's respiratory failure. I shared that prognosis is extremely poor due to numerous comorbid conditions They reiterate that patient is a DNR but they still would like continued medical treatment and transfer to [facility] for formal evaluation by pulmonology and patient's oncology services prior to making decisions about comfort care Hospitalist at [facility] contacted and case reviewed, they ag elias need for transfer for higher acuity of care and accepted patient. I updated daughter and son and they were amenable to plan of care as stated. All questions and concerns addressed prior to ER transfer Critical Care Time This patient required critical care. Due to the fact that the patient required a significant amount of one on one physician - patient contact time, ordering and review of studies, arranging urgent treatment with development of a management plan, evaluation of patients response to treatment with frequent reassessments, and discussions with other providers this patient required 50 minutes of critical care time. Critical care time was indicated due to the inherent instability and/or potential for instability in this patient. The critical care time that is allocated to this patient is above and beyond any time spent on any other billable procedures performed on this patient. Dragon Disclaimer Dragon Disclaimer This electronic medical record was generated, in whole or in part, using a voice recognition dictation system. Intubation Intubation : Intubation Method: orotracheal Tube Size (cm): 7.5 Breath Sounds after Intubation: equal Intubation Complications: no complications Post Intubation Xray: Yes Progress The patient required endotracheal intubation due to respiratory arrest without a patent airway Consent was implied due to medical emergency and need for airway access The patient was given no medications due to ongoing arrest Initial look using MAC 3 blade was unsuccessful due to broken light and so, glidoscope 3 was used to directly visualize the cords Using this direct visualization, a 7.5 endotracheal tube was then passed easily through the cords The tube was inserted at 24 centimeters at the lip There is excellent color change on end-tidal CO2 monitor. Patient was easily and adequately ventilated. There was excellent breath sounds bilaterally with no breath sounds heard over the epigastrium. The tube was secured in standard fashion. The patient tolerated procedure well with no observed nor reported complications Post intubation chest x-ray demonstrates excellent endotracheal tube placement Departure Departure: Impression: Primary Impression: Respiratory arrest Additional Impressions: Lung cancer Person under investigation for COVID-19 Disposition: 02 [facility] ([facility]) Admitting Physician: Other ([place]) Referrals: LUIS ARCE MD (PCP) Problem Qualifiers AMBER STOVALL DO Dec 01, 2020 07:30
[2020-12-01 07:39] LABS: BASO # 0.1 x10^3/uL (0.0-0.2); BASO % 1 % (0-3); EOS # 0.5 x10^3/uL (0.0-0.7); EOS % 4 % (0-3); HEMATOCRIT 40.4 % (36.0-47.0); HEMOGLOBIN 12.9 g/dL (12.0-15.5); LYMPH # 5.7 x10^3/uL (1.0-4.8); LYMPH % 47 % (24-48); MEAN CORPUSCULAR HEMOGLOBIN 30 pg (25-35); MEAN CORPUSCULAR HGB CONC 32 g/dL (31-37); MEAN CORPUSCULAR VOLUME 93 fL (79-100); MONO # 1.5 x10^3/uL (0.0-1.1); MONO % 12 % (0-9); NEUT # 4.5 x10^3uL (1.8-7.7); NEUT % 36 % (31-73); PLATELET COUNT 213 x10^3/uL (140-400); RED BLOOD COUNT 4.35 x10^6/uL (3.50-5.40); RED CELL DISTRIBUTION WIDTH 15.1 % (11.5-14.5); WHITE BLOOD COUNT 12.3 x10^3/uL (4.0-11.0)
--- NOTE | 2020-12-01 07:40 | RAD ---
EXAM: XR CHEST 1V 12/01/2020 7:25 AM CLINICAL INDICATION: CODE BLUE, status post intubation COMPARISON: CT chest 10/15/2020 TECHNIQUE: AP supine view of the chest FINDINGS: A left IJ Port-A-Cath is in place with tip at the superior cavoatrial junction. The cardia c silhouette is within normal limits. There are diffuse bilateral interstitial and alveolar opacities . Trace pleural fluid along the minor fissure. No pneumothorax. IMPRESSION: Bilateral pulmonary opacities could be due to pulmonary edema or multifocal pneumonia. Electronically signed by: Nancy Huston MD (12/01/2020 7:38 AM) [id number]
[2020-12-01 07:41] LABS: CALCIUM 8.5 mg/dL (8.5-10.1); CREATININE 1.3 mg/dL (0.6-1.0); GFR 39.9; POTASSIUM 4.7 mmol/L (3.5-5.1)
[2020-12-01 07:53] LABS: ALBUMIN 3.6 g/dL (3.4-5.0); ALBUMIN/GLOBULIN RATIO 0.8 (1.0-1.7); TOTAL BILIRUBIN 0.2 mg/dL (0.2-1.0); TOTAL PROTEIN 8.3 g/dL (6.4-8.2)
--- NOTE | 2020-12-01 08:12 | RAD ---
AP chest. HISTORY: OG placement AP view was taken of the chest. NG tube extends into the stomach. Endotracheal tube is at the aortic arch in good position. There is bilateral lung disease from infiltrates or pulmonary edema with worse amarjit especially on the right. Left Port-A-Cath is in good position. Heart is enlarged. IMPRESSION: 1. Mild worsening bilateral pulmonary edema or infiltrates, worse on the right. 2. Endotracheal tube in good position. 3. NG tube extends into the stomach. Electronically signed by: Jalen Rocha MD (12/01/2020 8:10 AM) [facility]
[2020-12-01 08:32] LABS: BGAS PH 7.13 (7.35-7.45)
[2020-12-01 08:52] LABS: BILIRUBIN,URINE NEG (NEG); CLARITY,URINE HAZY; COLOR,URINE YELLOW; GLUCOSE,URINE 100 mg/dL (NEG)
[2020-12-01 08:53] LABS: BACTERIA,URINE 0 /HPF (0-FEW); NITRITE,URINE NEG (NEG); SQUAMOUS EPITHELIAL CELL,UR MOD /LPF; UROBILINOGEN,URINE 0.2 mg/dL (0.2 mg/dL); WBC,URINE >40 /HPF (0-4)
[2020-12-01 08:58] LABS: BARBITURATES NEG (NEG); BENZODIAZEPINES NEG (NEG); CANNABINOIDS NEG (NEG); COCAINE NEG (NEG); METHADONE NEG (NEG); OPIATES NEG (NEG); PHENCYCLIDINE NEG (NEG)
--- NOTE | 2020-12-01 09:03 | RAD ---
EXAM: Head CT without contrast. HISTORY: Respiratory arrest. TECHNIQUE: Computed tomographic images of the head were obtained without contrast. *One or more of the following individualized dose reduction techniques were utilized for this examina tion: 1. Automated exposure control. 2. Adjustment of the mA and/or kV according to patient size. 3. Use of iterative reconstruction technique. COMPARISON: MRI dated 10/15/2020. FINDINGS: There is no acute or subacute extra-axial or intraparenchymal hemorrhage. There is no mass effect or midline shift. There is no hydrocephalus. There are areas of decreased attenuation within the cerebral white matter, nonspecific and likely rel ated to chronic small vessel disease. There is ethmoid sinus mucosal thickening. The orbits and mastoid air cells are unremarkable. There i s no suspicious calvarial lesion. IMPRESSION: 1. No acute intracranial finding. Note is made that MRI is more sensitive for acute infarction. 2. Bilateral cerebral white matter changes, likely due to chronic small vessel disease in a patient o f this age. Electronically signed by: Radha Chaudhary MD (12/01/2020 9:00 AM) [id number]
[2020-12-01 09:06] LABS: AMPHETAMINE/METHAMPHETAMINE NEG (NEG)
--- NOTE | 2020-12-01 09:28 | RAD ---
CT chest without contrast. HISTORY: Respiratory arrest CT scan the chest was done without contrast. There is an endotracheal tube stops just above the aorti c arch. There is no mediastinal adenopathy. There are small pleural effusions. Visualized portions of the liver and spleen are unremarkable. Adrenal glands are normal. NG tube extends into the stomach. There is a small pericardial effusion. There are diffuse infiltrates bilaterally more prominent on th e right than on the left. There is mild thickening of the interlobular septa. Pulmonary edema is poss ible, Covid pneumonia is possible, aspiration could potentially have this pattern. There is no pneumo thorax. There is respiratory motion artifact. A rib fracture is possible, respiratory motion makes ev aluation very difficult. IMPRESSION: 1. Bilateral infiltrates or pulmonary edema. 2. No pneumothorax. PQRS Compliance Statement: One or more of the following individualized dose reduction techniques were utilized for this examinat ion: 1. Automated exposure control 2. Adjustment of the mA and/or kV according to patient size 3. Use of iterative reconstruction technique Electronically signed by: Jalen Rocha MD (12/01/2020 9:26 AM) [facility]
[2020-12-01 09:45] LABS: BGAS PH 7.31 (7.35-7.45)
--- NOTE | 2020-12-01 10:19 | EKG ---
[address] [address] Test Date: 2020-12-01 Test Time: 08:42:52 Pat Name: MASHA GARCIAS Department: Room: Gender: F [employer] Salesperson: JUDE : 1945 Requested By: AMBER STOVALL Order Number: [id number] Reading MD: Measurements Intervals [place] Rate: 108 P: 66 VA: 134 QRS: 70 QRSD: 78 T: 91 QT: 348 QTc: 470 Interpretive Statements SINUS TACHYCARDIA LEFT ATRIAL ABNORMALITY QRS(T) CONTOUR ABNORMALITY CONSISTENT WITH ANTEROSEPTAL INFARCT PROBABLY OLD ABNORMAL ECG RI6.02 No previous ECG available for comparison
[2020-12-01 12:08] VITALS: BP 137/94
== END | disposition short-term general hospital (02) ==
LOC: ER 07:10
DX: R09.2 Respiratory arrest (principal); F41.9 Anxiety disorder, unspecified; M19.90 Unspecified osteoarthritis, unspecified site; I10 Essential (primary) hypertension; F17.210 Nicotine dependence, cigarettes, uncomplicated; J44.9 Chronic obstructive pulmonary disease, unspecified; Z85.118 Personal history of other malignant neoplasm of bronchus and lung; Z20.822 Contact with and (suspected) exposure to COVID-19; Z88.0 Allergy status to penicillin; Z88.8 Allergy status to other drugs, medicaments and biological substances
CPT/HCPCS: 31500; 36415; 36600; 51702; 70450; 71045; 71250; 80053; 80307; 81001; 82803; 82947; 83605; 83880; 84484; 85025; 85610; 85730; 87040; 87077; 87086; 87186; 87205; 87426; 93005; 96365; 96375; 99291; C9113; J0171; J2704; J2930; J3010; U0003; 94002